=== PATIENT | female | born 1945 | race Caucasian/White ===

== ENCOUNTER 2023-12-27 17:01 | Emergency (ER) | payer OTHER ==
[~2023-12-27] VITALS: Ht 162.6 cm; Wt 127.2 kg
[2023-12-27 19:18] LABS: Basophils % (auto) 0.5 % (0.0-2.0); Eosinophils # (auto) 0.1 10 ^3/uL (0-0.8); Lymphocytes # (auto) 0.9 10 ^3/uL (0.4-5.4)
[2023-12-27 19:19] LABS: Basophils # (auto) 0 10 ^3/uL (0-0.2); Eosinophils % (auto) 0.7 % (0.0-7.0); Hematocrit 32.9 % (36.0-46.0); Hemoglobin 10.6 g/dL (12.2-16.2); Lymphocytes % (auto) 8.7 % (10.0-50.0); Mean Corpuscular Hemoglobin 26.3 pg (28.0-32.0); Mean Corpuscular Hgb Conc. 32.2 g/dL (32.0-36.0); Mean Corpuscular Volume 81.5 fL (80.0-100.0); Monocytes # (auto) 0.6 10 ^3/uL (0-1.3); Monocytes % (auto) 6.2 % (0.0-12.0); Neutrophils # (auto) 8.3 10 ^3/uL (1.6-8.6); Neutrophils % (auto) 83.9 % (37.0-80.0); Nucleated Red Blood Cells % 0.2 %; Red Blood Cells 4.04 10^6/uL (4.0-5.20); Red Cell Distribution Width 17.6 % (11.8-14.3)
[2023-12-27 19:33] LABS: INR 1.16 (0.9-1.15); Prothrombin Time 12.2 sec (9.3-11.8)
[2023-12-27 19:45] LABS: Albumin 3.2 g/dL (3.2-4.8); Alkaline Phosphatase 77 U/L (46-116); Anion Gap 10 (5-15); Aspartate Aminotransferase 11 U/L (13-40); BUN/Creatinine Ratio 13.9 (10.0-20.0); Blood Urea Nitrogen 10 mg/dL (9-23); Carbon Dioxide 31 mmol/L (20-30); Chloride 98 mmol/L (98-107); Glucose 134 mg/dL (74-106); Lipase 27 U/L (12-53); Potassium 3.7 mmol/L (3.5-5.1); Sodium 139 mmol/L (136-145)
[2023-12-27 19:46] LABS: Bilirubin, Total 1.1 mg/dL (0.2-1.0); Total Protein 5.8 g/dL (5.7-8.2)
[2023-12-27 19:49] LABS: Alanine Aminotransferase < 9 U/L (7-40)
[2023-12-27] MEDS: IOHEXOL 300 MG/ML 100ML BOTTLE IJ ONE (23:03)
[2023-12-28 01:22] VITALS: BP 133/71; PULSE 89; RESP 18; TEMP 98.7; O2SAT 94
== END 2023-12-28 21:53 | disposition home or self-care (01) ==
LOC: ER 17:01
DX: R19.00 Intra-abdominal and pelvic swelling, mass and lump, unspecified site (principal); I10 Essential (primary) hypertension; E78.5 Hyperlipidemia, unspecified; Z79.899 Other long term (current) drug therapy; Z86.2 Personal history of diseases of the blood and blood-forming organs and certain disorders involving the immune mechanism
CPT/HCPCS: 36415; 74177; 80053; 83690; 83880; 85025; 85610; 93005; 99285; Q9967

== ENCOUNTER 2024-02-26 06:57 | Emergency (ER) | payer OTHER ==
[~2024-02-26] VITALS: Ht 160 cm; Wt 127.2 kg
[2024-02-26 08:27] LABS: Basophils # (auto) 0.1 10 ^3/uL (0-0.2); Basophils % (auto) 0.4 % (0.0-2.0); Eosinophils # (auto) 0 10 ^3/uL (0-0.8); Eosinophils % (auto) 0.3 % (0.0-7.0); Hematocrit 28.3 % (36.0-46.0); Hemoglobin 8.8 g/dL (12.2-16.2); Lymphocytes # (auto) 0.6 10 ^3/uL (0.4-5.4); Lymphocytes % (auto) 4.4 % (10.0-50.0); Mean Corpuscular Hemoglobin 25.7 pg (28.0-32.0); Mean Corpuscular Hgb Conc. 31.1 g/dL (32.0-36.0); Mean Corpuscular Volume 82.6 fL (80.0-100.0); Monocytes # (auto) 0.8 10 ^3/uL (0-1.3); Monocytes % (auto) 5.7 % (0.0-12.0); Neutrophils # (auto) 12.9 10 ^3/uL (1.6-8.6); Neutrophils % (auto) 89.2 % (37.0-80.0); Nucleated Red Blood Cells % 0.2 %; Red Blood Cells 3.43 10^6/uL (4.0-5.20); White Blood Cell 14.5 10^3/uL (4.4-10.8)
[2024-02-26 08:28] LABS: Red Cell Distribution Width 20.3 % (11.8-14.3)
[2024-02-26 08:42] LABS: INR 1.11 (0.9-1.15); Partial Thromboplastin Time 25.6 SEC (24.5-34.5); Prothrombin Time 11.7 sec (9.3-11.8)
[2024-02-26 08:48] LABS: Albumin 3.3 g/dL (3.2-4.8); Alkaline Phosphatase 96 U/L (46-116); Anion Gap 6 (5-15); Aspartate Aminotransferase 11 U/L (13-40); BUN/Creatinine Ratio 15.7 (10.0-20.0); Blood Urea Nitrogen 13 mg/dL (9-23); Calcium 9.3 mg/dL (8.7-10.4); Carbon Dioxide 31 mmol/L (20-30); Chloride 96 mmol/L (98-107); Glucose 156 mg/dL (74-106); Potassium 4.3 mmol/L (3.5-5.1); Sodium 133 mmol/L (136-145)
[2024-02-26 08:49] LABS: Bilirubin, Total 1.3 mg/dL (0.2-1.0); Total Protein 6.4 g/dL (5.7-8.2)
[2024-02-26 08:57] LABS: Alanine Aminotransferase < 9 U/L (7-40)
[2024-02-26] MEDS: IOHEXOL 300 MG/ML 100ML BOTTLE IJ ONE (09:18)
[2024-02-26] MEDS: ONDANSETRON HCL 4 MG/2 ML VIAL IV ONE (10:33)
[2024-02-26] MEDS: FUROSEMIDE 20 MG/2 ML VIAL IV ONE (10:35)
[2024-02-26] MEDS: MORPHINE SULFATE 4 MG/ML SYR/VIAL IV ONE (10:35)
[2024-02-26 11:00] VITALS: PULSE 89; RESP 12; O2SAT 99
[2024-02-26 11:19] LABS: Urine Bacteria MANY /hpf (None Seen); Urine Blood Negative /uL (Negative); Urine Clarity Turbid (Clear); Urine Color Yellow (Yellow); Urine Mucus FEW (None Seen); Urine Protein, UAD TRACE (Negative); Urine Specific Gravity 1.024 (1.001-1.035); Urine Urobilinogen Normal (Negative); Urine WBC 9 /hpf (0 - 5); Urine pH 5.5 (5.0-9.0)
[2024-02-26] MEDS ORDERED: HEPARIN DRIP/D5W 100UNITS/ML 250 ML IV SCH (11:45)
[2024-02-26] MEDS: cefTRIAXone 1GM/50ML D5W 50 ML IV ONE (13:46)
[2024-02-26 15:54] VITALS: BP 116/68; PULSE 108; RESP 15; TEMP 98.1; O2SAT 100
== END 2024-02-26 16:26 | disposition short-term general hospital (02) ==
LOC: EDBD 06:57 → ER 06:57
DX: N28.89 Other specified disorders of kidney and ureter (principal); I26.99 Other pulmonary embolism without acute cor pulmonale; R60.9 Edema, unspecified; E78.5 Hyperlipidemia, unspecified; I10 Essential (primary) hypertension; R51.9 Headache, unspecified
CPT/HCPCS: 36415; 70450; 71045; 74177; 80053; 81001; 83880; 85025; 85610; 85730; 96365; 96375; 99285; J0696; J1940; J2270; J2405; Q9967